=== PATIENT | male | born 1975 | race Two or more races ===

== ENCOUNTER 2023-12-30 20:05 | Inpatient (IN) | payer MEDICAID, OTHER ==
[~2023-12-30] VITALS: Ht 152.4 cm; Wt 93.3 kg
[2023-12-30 20:27] LABS: Basophils # (auto) 0 10 ^3/uL (0-0.2); Basophils % (auto) 0.4 % (0.0-2.0); Eosinophils # (auto) 0.3 10 ^3/uL (0-0.8); Eosinophils % (auto) 4.1 % (0.0-7.0); Hemoglobin 15.4 g/dL (13.5-17.5); Lymphocytes # (auto) 2.2 10 ^3/uL (0.4-5.4); Lymphocytes % (auto) 27.5 % (10.0-50.0); Mean Corpuscular Hemoglobin 31.2 pg (28.0-32.0); Mean Corpuscular Hgb Conc. 34.3 g/dL (32.0-36.0); Monocytes # (auto) 0.6 10 ^3/uL (0-1.3); Monocytes % (auto) 7.6 % (0.0-12.0); Neutrophils # (auto) 4.8 10 ^3/uL (1.6-8.6); Neutrophils % (auto) 60.4 % (37.0-80.0); Nucleated Red Blood Cells % 0.1 %; Platelet Count (auto) 222 10^3/uL (140-450); Red Blood Cells 4.94 10^6/uL (4.5-5.90); Red Cell Distribution Width 14.2 % (11.8-14.3)
[2023-12-30 20:42] LABS: Alanine Aminotransferase 29 U/L (7-40); Alkaline Phosphatase 140 U/L (46-116); Anion Gap 8 (5-15); Aspartate Aminotransferase 17 U/L (13-40); BUN/Creatinine Ratio 12.6 (10.0-20.0); Blood Urea Nitrogen 11 mg/dL (9-23); Calcium 9.9 mg/dL (8.7-10.4); Carbon Dioxide 23 mmol/L (20-31); Chloride 108 mmol/L (98-107); Glucose 141 mg/dL (74-106); Magnesium 1.9 mg/dL (1.6-2.6); Potassium 3.6 mmol/L (3.5-5.1); Sodium 139 mmol/L (136-145)
[2023-12-30 20:43] LABS: Albumin 4.9 g/dL (3.2-4.8); Bilirubin, Total 0.3 mg/dL (0.2-1.0); Total Protein 7.9 g/dL (5.7-8.2)
[2023-12-30 20:44] LABS: INR 0.97 (0.9-1.15); Partial Thromboplastin Time 23.7 SEC (24.5-34.5); Prothrombin Time 10.3 sec (9.3-11.8)
[2023-12-30] MEDS: ASPirin 325 MG TAB PO ONE (21:11)
[2023-12-30] MEDS: MORPHINE SULFATE 4 MG/ML SYR/VIAL IV ONE (21:23)
[2023-12-30] MEDS ORDERED: HYDROcodone-ACET 5/325MG TAB PO PRN (22:00)
[2023-12-30] MEDS ORDERED: ONDANSETRON HCL 4 MG/2 ML VIAL IV PRN (22:00)
[2023-12-30] MEDS ORDERED: DOCUSATE SOD 100 MG CAP PO PRN (22:00)
[2023-12-30] MEDS ORDERED: ACETAMINOPHEN 325 MG TAB PO PRN (22:00)
[2023-12-30 22:20] VITALS: PULSE 68; RESP 19; O2SAT 95
[2023-12-30] MEDS ORDERED: MORPHINE SULFATE INJ 2 MG/ml SYRG IV PRN (22:45)
[2023-12-30] MEDS ORDERED: NITROGLYCERIN 0.4 MG SL TAB SL PRN (22:45)
[2023-12-30] MEDS: ATORVASTATIN 20 MG TAB PO SCH (22:46)
[2023-12-30] MEDS: SODIUM CHLORIDE 0.9% 1,000 ML IV SCH (22:46)
[2023-12-30] MEDS: MORPHINE SULFATE INJ 2 MG/ml SYRG IV PRN (22:49)
[2023-12-31] MEDS ORDERED: HEPARIN DRIP/D5W 100UNITS/ML 250 ML IV SCH (02:00)
[2023-12-31] MEDS: HEPARIN SODIUM (PORCINE) 5000 UNITS/ML 1ML VIAL IV ONE (02:05)
[2023-12-31 02:30] LABS: Basophils # (auto) 0 10 ^3/uL (0-0.2); Basophils % (auto) 0.5 % (0.0-2.0); Eosinophils # (auto) 0.1 10 ^3/uL (0-0.8); Eosinophils % (auto) 1.7 % (0.0-7.0); Lymphocytes # (auto) 1.8 10 ^3/uL (0.4-5.4); Lymphocytes % (auto) 24.9 % (10.0-50.0); Mean Corpuscular Hgb Conc. 34.1 g/dL (32.0-36.0); Mean Corpuscular Volume 90.7 fL (80.0-100.0); Monocytes # (auto) 0.6 10 ^3/uL (0-1.3); Monocytes % (auto) 7.6 % (0.0-12.0); Neutrophils # (auto) 4.8 10 ^3/uL (1.6-8.6); Neutrophils % (auto) 65.3 % (37.0-80.0); Nucleated Red Blood Cells % 0.1 %; Platelet Count (auto) 213 10^3/uL (140-450); Red Blood Cells 4.85 10^6/uL (4.5-5.90); Red Cell Distribution Width 14.1 % (11.8-14.3); White Blood Cell 7.3 10^3/uL (4.4-10.8)
[2023-12-31 02:49] LABS: INR 0.99 (0.9-1.15); Partial Thromboplastin Time 23.2 SEC (24.5-34.5); Prothrombin Time 10.5 sec (9.3-11.8)
[2023-12-31] MEDS: HEPARIN DRIP/D5W 100UNITS/ML 250 ML IV SCH ×3 (03:41→21:45)
[2023-12-31 04:56] LABS: Basophils # (auto) 0 10 ^3/uL (0-0.2); Basophils % (auto) 0.4 % (0.0-2.0); Eosinophils # (auto) 0.3 10 ^3/uL (0-0.8); Eosinophils % (auto) 4.2 % (0.0-7.0); Hematocrit 44.8 % (41.0-53.0); Hemoglobin 15.5 g/dL (13.5-17.5); Lymphocytes # (auto) 2.5 10 ^3/uL (0.4-5.4); Lymphocytes % (auto) 34.3 % (10.0-50.0); Mean Corpuscular Hemoglobin 31.7 pg (28.0-32.0); Mean Corpuscular Hgb Conc. 34.7 g/dL (32.0-36.0); Mean Corpuscular Volume 91.3 fL (80.0-100.0); Monocytes # (auto) 0.6 10 ^3/uL (0-1.3); Monocytes % (auto) 7.7 % (0.0-12.0); Neutrophils % (auto) 53.4 % (37.0-80.0); Nucleated Red Blood Cells % 0.1 %; Platelet Count (auto) 217 10^3/uL (140-450); Red Cell Distribution Width 13.9 % (11.8-14.3); White Blood Cell 7.4 10^3/uL (4.4-10.8)
[2023-12-31 05:24] LABS: Alanine Aminotransferase 49 U/L (7-40); Albumin 4.5 g/dL (3.2-4.8); Alkaline Phosphatase 118 U/L (46-116); Anion Gap 11 (5-15); Aspartate Aminotransferase 66 U/L (13-40); BUN/Creatinine Ratio 20.6 (10.0-20.0); Bilirubin, Total 0.4 mg/dL (0.2-1.0); Blood Urea Nitrogen 13 mg/dL (9-23); Calcium 9.5 mg/dL (8.7-10.4); Carbon Dioxide 22 mmol/L (20-31); Chloride 108 mmol/L (98-107); Glucose 115 mg/dL (74-106); Potassium 3.9 mmol/L (3.5-5.1); Sodium 141 mmol/L (136-145)
[2023-12-31 05:25] LABS: Total Protein 6.9 g/dL (5.7-8.2)
[2023-12-31] MEDS: ASPirin 81 mg TAB PO SCH (09:58)
[2023-12-31 11:23] LABS: Prothrombin Time 10.6 sec (9.3-11.8)
[2023-12-31 13:16] LABS: Triglycerides 164 mg/dL (< 150)
[2023-12-31 13:17] LABS: LDL Cholesterol 166 mg/dL (< 100)
[2023-12-31 13:18] LABS: Cholesterol 224 mg/dL (< 200); HDL Cholesterol 57 mg/dL (40-59)
[2023-12-31 18:18] VITALS: RESP 16
[2023-12-31 18:23] VITALS: BP 110/70; PULSE 61; RESP 17; TEMP 98.3; O2SAT 96
[2023-12-31 20:00] VITALS: PULSE 65
[2023-12-31 20:50] LABS: INR 1.05 (0.9-1.15); Partial Thromboplastin Time 44.4 SEC (24.5-34.5); Prothrombin Time 11.1 sec (9.3-11.8)
[2023-12-31 21:00] VITALS: BP 118/56; PULSE 54; RESP 20; TEMP 98.2; O2SAT 97
[2024-01-01] VITALS (12 sets, daily range): BP systolic 119–130; BP diastolic 59–98; PULSE 57–73; RESP 12–20; TEMP 97.7–98.5; O2SAT 95–99
[2024-01-01 04:38] LABS: Basophils # (auto) 0 10 ^3/uL (0-0.2); Basophils % (auto) 0.3 % (0.0-2.0); Eosinophils # (auto) 0.3 10 ^3/uL (0-0.8); Eosinophils % (auto) 5.2 % (0.0-7.0); Hemoglobin 15.3 g/dL (13.5-17.5); Lymphocytes # (auto) 2.6 10 ^3/uL (0.4-5.4); Lymphocytes % (auto) 38.5 % (10.0-50.0); Mean Corpuscular Hemoglobin 31.3 pg (28.0-32.0); Mean Corpuscular Hgb Conc. 34.1 g/dL (32.0-36.0); Mean Corpuscular Volume 91.8 fL (80.0-100.0); Monocytes # (auto) 0.5 10 ^3/uL (0-1.3); Neutrophils # (auto) 3.3 10 ^3/uL (1.6-8.6); Nucleated Red Blood Cells % 0.2 %; Platelet Count (auto) 220 10^3/uL (140-450); Red Cell Distribution Width 14.6 % (11.8-14.3); White Blood Cell 6.7 10^3/uL (4.4-10.8)
[2024-01-01 04:55] LABS: INR 1.03 (0.9-1.15); Partial Thromboplastin Time 54.3 SEC (24.5-34.5); Prothrombin Time 10.9 sec (9.3-11.8)
[2024-01-01] MEDS: ANGIOMAX 250 MG VIAL IV ONE (09:32)
[2024-01-01] MEDS: fentaNYL CITRATE 100 MCG/2 ML VL ONE (09:33)
[2024-01-01] MEDS: VERAPAMIL 2.5MG/ML INJ 2ML VIAL IV ONE (09:33)
[2024-01-01] MEDS: MIDAZOLAM HCL 2MG/2ML 2ml VIAL (1mg/ml) ONE (09:33)
[2024-01-01] MEDS: LIDOCAINE 2%HCL (LOCAL ANESTH.) INJ 20ML MDV ONE (09:34)
[2024-01-01] MEDS: SODIUM CHL 0.9% 50 ML ONE (09:34)
[2024-01-01] MEDS: IODIXANOL 320MG/ML 100ML BTL IV ONE ×2 (09:34→10:23)
[2024-01-01] MEDS: ATROPINE SULF 1 MG/10ml SYR ONE (10:19)
[2024-01-01] MEDS: EPTIFIBATIDE INJ (2MG/ML) 10ML VIAL IV ONE (10:21)
[2024-01-01] MEDS: TICAGRELOR 90 MG TAB ONE (11:04)
[2024-01-01] MEDS: ASPirin 325 MG TAB ONE (11:04)
[2024-01-01 13:48] LABS: INR 1.08 (0.9-1.15); Partial Thromboplastin Time 36.2 SEC (24.5-34.5); Prothrombin Time 11.4 sec (9.3-11.8)
[2024-01-01] MEDS ORDERED: HEPARIN DRIP/D5W 100UNITS/ML 250 ML IV SCH (14:15)
[2024-01-01] MEDS: CLOPIDOGREL BISULFATE 75 MG TAB PO ONE ×2 (15:08→21:39)
[2024-01-01] MEDS: LISINOPRIL 20 MG TAB PO ONE (15:08)
[2024-01-01 20:39] LABS: INR 1.08 (0.9-1.15); Partial Thromboplastin Time 26.9 SEC (24.5-34.5); Prothrombin Time 11.4 sec (9.3-11.8)
[2024-01-01] MEDS: METOPROLOL TARTRATE 50 MG TAB PO SCH (21:41)
[2024-01-02] VITALS (9 sets, daily range): BP systolic 114–119; BP diastolic 57–75; PULSE 54–68; RESP 18–20; TEMP 36.7; O2SAT 95–100
[2024-01-02 07:06] LABS: Basophils # (auto) 0 10 ^3/uL (0-0.2); Basophils % (auto) 0.2 % (0.0-2.0); Eosinophils # (auto) 0.4 10 ^3/uL (0-0.8); Eosinophils % (auto) 4.8 % (0.0-7.0); Hematocrit 43.7 % (41.0-53.0); Hemoglobin 15.1 g/dL (13.5-17.5); Lymphocytes # (auto) 2.1 10 ^3/uL (0.4-5.4); Lymphocytes % (auto) 25.9 % (10.0-50.0); Mean Corpuscular Hemoglobin 31.5 pg (28.0-32.0); Mean Corpuscular Hgb Conc. 34.6 g/dL (32.0-36.0); Mean Corpuscular Volume 91.1 fL (80.0-100.0); Monocytes # (auto) 0.7 10 ^3/uL (0-1.3); Monocytes % (auto) 8.5 % (0.0-12.0); Neutrophils # (auto) 4.9 10 ^3/uL (1.6-8.6); Neutrophils % (auto) 60.6 % (37.0-80.0); Platelet Count (auto) 218 10^3/uL (140-450); White Blood Cell 8.1 10^3/uL (4.4-10.8)
[2024-01-02] MEDS ORDERED: CLOPIDOGREL BISULFATE 75 MG TAB PO SCH (10:00)
[2024-01-02] MEDS: CLOPIDOGREL BISULFATE 75 MG TAB PO SCH (10:14)
[2024-01-02] MEDS: LISINOPRIL 20 MG TAB PO SCH (10:15)
[2024-01-02] MEDS ORDERED: LISI20TA56 PO (12:16)
[2024-01-02] MEDS ORDERED: METO-158 PO (12:16)
[2024-01-02] MEDS ORDERED: CLOP75TA28 PO (12:16)
[2024-01-02] MEDS ORDERED: ASPI-628 PO (12:16)
[2024-01-02] MEDS ORDERED: ATOR-507 PO (12:16)
== END 2024-01-02 16:55 | disposition home or self-care (01) | DRG 174 ==
LOC: ER 20:05 → TELE 22:35 → TELE-WESTW 12-31 18:12
PROVIDERS: ADMIT Nurse Practitioner Family; ATTEND Family Medicine
PROC: 4A023N7 Measurement of Cardiac Sampling and Pressure, Left Heart, Percutaneous Approach (ICD-10-PCS; principal; 2024-01-01)
PROC: 027035Z Dilation of Coronary Artery, One Artery with Two Drug-eluting Intraluminal Devices, Percutaneous Approach (ICD-10-PCS; 2024-01-01)
PROC: B211YZZ Fluoroscopy of Multiple Coronary Arteries using Other Contrast (ICD-10-PCS; 2024-01-01)
DX: I21.4 Non-ST elevation (NSTEMI) myocardial infarction (principal); E66.01 Morbid (severe) obesity due to excess calories; R73.9 Hyperglycemia, unspecified; I10 Essential (primary) hypertension; I25.10 Atherosclerotic heart disease of native coronary artery without angina pectoris; Z82.49 Family history of ischemic heart disease and other diseases of the circulatory system; Z90.49 Acquired absence of other specified parts of digestive tract; Z68.41 Body mass index [BMI] 40.0-44.9, adult; Z79.899 Other long term (current) drug therapy
CPT/HCPCS: 36415; 71045; 80053; 80061; 83735; 83880; 84484; 85025; 85610; 85730; 86850; 86900; 86901; 92941; 93306; 93458; 96365; 96375; 96376; 99152; G0378; J2250; Q9967